=== PATIENT | female | born 1975 | race Caucasian/White ===

== ENCOUNTER 2021-09-18 15:56 | Emergency (ER) | payer BC, OTHER ==
[~2021-09-18] VITALS: Ht 165.1 cm; Wt 65.8 kg
[2021-09-18] MEDS ORDERED: KETOROLAC TROMETHAMINE 15 MG/ML VIAL ONE (19:24)
[2021-09-18] MEDS ORDERED: KETOROLAC TROMETHAMINE INJ 30 MG/ML VIAL IM ONE (19:30)
--- NOTE | 2021-09-18 19:51 | NUR ---
CALLED ALEXE[facility], IMAGE BEING READ NOW
[2021-09-18] MEDS ORDERED: IBUP-1955 PO (20:05)
[2021-09-18 20:15] VITALS: BP 121/86
--- NOTE | 2021-09-18 20:16 | NUR ---
Patient discharged to home in stable condition.RX, Written and verbal after care instructions given. Patient verbalizes understanding of instruction.
== END 2021-09-18 18:19 | disposition home or self-care (01) ==
LOC: ER 15:59
DX: S20.211A Contusion of right front wall of thorax, initial encounter (principal); S00.83XA Contusion of other part of head, initial encounter; Z60.2 Problems related to living alone; E10.9 Type 1 diabetes mellitus without complications; W18.39XA Other fall on same level, initial encounter; Y93.89 Activity, other specified; Y92.89 Other specified places as the place of occurrence of the external cause; Y99.8 Other external cause status
CPT/HCPCS: 71100; 96372; 99283; J1885

== ENCOUNTER 2025-09-22 11:00 | Emergency (ER) | payer BC ==
[~2025-09-22] VITALS: Ht 165.1 cm; Wt 74.8 kg
[~2025-09-22 11:00] MED LIST: IBUP-1955 PO
[2025-09-22] MEDS ORDERED: ONDANSETRON HCL/PF 4 MG/2 ML VIAL ONE (11:16)
[2025-09-22] MEDS: IV NS 0.9% 1,000 ML BAG IV ONE (11:28)
[2025-09-22] MEDS: ONDANSETRON HCL/PF 4 MG/2 ML VIAL IVP ONE (11:28)
[2025-09-22] MEDS: IV LR 1000 ML 1,000 ML IV ONE (11:28)
[2025-09-22 11:34] LABS: FLOW, VBG 0.00 L/min (0.00-30.00); FRACTIONATED INSPIRED OXYGEN-V 21.0 %; SITE, VBG VBG - N/A; VBG BASE EXCESS -4.2 mmol/L (-2.0-3.0); VBG HCO3 20.5 mmol/L (22.0-29.0); VBG MetHb 0.2 % (0.5-1.5); VBG OXYGEN SATURATION 63.4 % (60.0-85.0); VBG PCO2 36.5 mmHg (38.0-54.0); VBG PH 7.367 (7.320-7.430); VBG PO2 30.7 mmHg (23.0-48.0); VBG TOTAL HEMOGLOBIN 15.3 G/dL (12.0-16.0)
[2025-09-22 11:35] LABS: PLATELET COUNT (AUTO) 313 K/uL (150-450); RED BLOOD CELL COUNT(AUTO) 4.85 MIL/uL (4.0-5.2); RED CELL DISTRIBUTION WIDTH 13.2 % (11.5-15.0); WHITE BLOOD COUNT (AUTO) 5.0 K/uL (4.3-11.0)
[2025-09-22 11:47] LABS: CALCIUM, SERUM 8.5 mg/dL (8.5-10.1); CREATININE 0.9 mg/dL (0.6-1.3); SODIUM SERUM 137.0 mmol/L (136-145); UREA NITROGEN, BLOOD 11.0 mg/dL (7-18)
[2025-09-22 11:55] LABS: ASPARTATE AMINOTRANSFERASE 18.0 U/L (15-37)
[2025-09-22 11:56] LABS: TOTAL PROTEIN, SERUM 7.7 g/dL (6.4-8.2)
[2025-09-22] MEDS ORDERED: ONDA4TAB11 PO (12:24)
[2025-09-22 12:56] VITALS: BP 115/66; TEMP 98; O2SAT 100
== END 2025-09-22 12:57 | disposition home or self-care (01) ==
LOC: ER 11:06
DX: E86.0 Dehydration (principal); R11.2 Nausea with vomiting, unspecified; E10.10 Type 1 diabetes mellitus with ketoacidosis without coma; Z79.4 Long term (current) use of insulin; Z60.2 Problems related to living alone
CPT/HCPCS: 99284; 96374; 96361; 93005; 82803 ×2; 85025; 80048; 82010; 83690; 80076; 36415; J2405; J7120 ×2; J7030